=== PATIENT | male | born 1945 | race Caucasian/White ===

== ENCOUNTER 2018-09-21 22:30 | Emergency (ER) | payer MEDICARE, BC ==
[2018-09-21 22:37] VITALS: BP 148/92
[2018-09-21] MEDS: Lidocaine 1% 20 ML MDV ONE (22:59)
[2018-09-21] MEDS: Lidocaine 1% 20 ML MDV INJECT ONE (23:00)
[2018-09-22] MEDS: Bacitracin/Neomycin/Polymyxin B Oint 0.9 GM U/D Packet ONE (00:14)
[2018-09-22] MEDS: Bacitracin/Neomycin/Polymyxin B Oint 0.9 GM U/D Packet TOP ONE (00:14)
[2018-09-22] MEDS: Take Home: Acetaminophen/HYDROcodone 325-5 MG, 2 Tab Pack PO ONE (00:15)
--- NOTE | 2018-09-22 00:17 | EDM.PDOC ---
ED HPI GENERAL MEDICAL PROBLEM - General Chief Complaint: Laceration Stated Complaint: finger laceration Time Seen by Provider: 09/21/18 22:45 Source of Information: Reports: Patient History Limitations: Reports: No Limitations - History of Present Illness INITIAL COMMENTS - FREE TEXT/NARRATIVE: Bolivar is a 73 year old male who presents to the ED with c/o a laceration to his right second digit. Reports he was changing oil and trying to release part of oil diggs when his finger slid and got cut by the metal. He reports incident happened about 4.5 hours prior to ED presentation, but he wasn't sure he needed sutures so did not initially come. He reports as evening progressed he continued to have bleeding despite pressure dressing so decided he better come in. He reports numbness to distal aspect of right second digit. Reports full ROM. Rates pain 9/10. Has not tried anything. Does have significant laceration to distal palmar aspect of right second digit. Bleeding not controlled when pressure dressing removed. Denies any dizziness. No other symptoms. Onset: Today, Sudden Onset Date: 09/21/18 Onset Time: 18:00 Duration: Constant Location: Reports: Upper Extremity, Right Quality: Reports: Throbbing Severity: Severe Improves with: Reports: None Worsens with: Reports: None Associated Symptoms: Reports: No Other Symptoms Right Finger-Index Pain Score (Numeric/FACES): 9 - Related Data Allergies Allergy/AdvReac Type Severity Reaction Status Date / Time atorvastatin calcium Allergy Rash Verified 09/21/18 22:37 [From Lipitor] Horse/Equine Containing Allergy Shortness Verified 09/21/18 22:37 Products of Breath Home Meds: Home Meds Quinapril/Hydrochlorothiazide [Quinapril-Hctz 20-25 mg Tab] 2 tab PO DAILY [History] Simvastatin 10 mg PO BEDTIME 07/17/15 [History] Hydrocodone/Acetaminophen [[place] 5-325 Tablet] 1 tab PO Q6H PRN #10 tablet 09/22 [Rx] Sulfamethoxazole/Trimethoprim [Septra DS] 1 each PO BID 7 Days #14 tab 09/22/18 [Rx] Past Medical History Cardiovascular History: Reports: High Cholesterol, Hypertension Respiratory History: Reports: None Gastrointestinal History: Reports: None Genitourinary History: Reports: None Other Musculoskeletal History: rheumatism Neurological History: Reports: None Psychiatric History: Reports: None Endocrine/Metabolic History: Reports: None Hematologic History: Reports: None Immunologic History: Reports: None Oncologic (Cancer) History: Reports: None Dermatologic History: Reports: None - Infectious Disease History Infectious Disease History: Reports: Measles, Mumps - Past Surgical History HEENT Surgical History: Reports: None Respiratory Surgical History: Reports: None GI Surgical History: Reports: Colonoscopy Male Surgical History: Reports: None Endocrine Surgical History: Reports: None Neurological Surgical History: Reports: None Musculoskeletal Surgical History: Reports: None Other Musculoskeletal Surgeries/Procedures:: L hand crush injury Dermatological Surgical History: Reports: None Social & Family History - Tobacco Use Smoking Status *Q: Never Smoker - Recreational Drug Use Recreational Drug Use: No ED ROS GENERAL - Review of Systems Review Of Systems: ROS reveals no pertinent complaints other than HPI. ED EXAM, SKIN/RASH Exam: See Below Exam Limited By: No Limitations General Appearance: Alert, WD/WN, No Apparent Distress Peripheral Pulses: 2+: Radial (R) Extremities: Normal Range of Motion, Normal Capillary Refill, Other (ROM intact to distal phalynx right second digit) Skin: Wound/Incision (2.5 cm x 2.5 cm T shaped laceration to distal aspect of right second phalynx) Location, Skin: Upper Extremity, Right ED SKIN PROCEDURES - Laceration/Wound Repair Right Distal Digit - 2nd (Index) Lac/Wound length In cm: 5 (2.5 x 2.5 cm T shaped) Appearance: Subcutaneous, Irregular, Clean Distal NVT: Neuro & Vascular Intact Anesthetic Type: Digital Local Anesthesia - Lidocaine (Xylocaine): 1% Plain Local Anesthetic Volume: 5cc Skin Prep: Providone-Iodine (Betadine), Other (Wound cleanser) Exploration/Debridement/Repair: Wound Explored, Minimal Debridement, No Foreign Material Found, Multiple Flaps Aligned Closed with: Sutures Suture Size: other (5-0) # of Sutures: 12 Suture Type: Nylon, Interrupted, Simple Sterile Dressing Applied: Provider Tetanus Status Addressed: Yes Complications: No Progress/Comments: After verbal consent was obtained, laceration was closed without difficulty. Course - Vital Signs Last Recorded V/S: Last Vital Signs Temp 98 F 09/21/18 22:32 Pulse 90 09/21/18 22:32 Resp 18 09/21/18 22:32 BP 148/92 H 09/21/18 22:32 Pulse Ox 96 05/06/19 22:32 - Orders/Labs/Meds Meds: Medications Discontinued Medications Generic Name Dose Route Start Last Admin Trade Name Brandonq PRN Reason Stop Dose Admin Hydrocodone Bitart/Acetaminophen 2 packet 09/22/18 00:05 09/22/18 00:15 Take Home: Acetaminophen/Hydrocod, 2 Tab Pack PO 09/22/18 00:06 2 packet ONETIME ONE Administration Lidocaine HCl Confirm 09/21/18 22:43 09/21/18 22:59 Xylocaine 1% Administered 09/21/18 22:44 Not Given Dose 20 ml .ROUTE .STK-MED ONE Lidocaine HCl 20 ml 09/21/18 22:59 09/21/18 23:00 Xylocaine 1% INJECT 09/21/18 23:00 20 ml ONETIME ONE Administration Neomycin/Polymyxin/Bacitracin Confirm 09/21/18 23:52 09/22/18 00:14 Triple Antibiotic Oint Administered 09/21/18 23:53 Not Given Dose 1 each .ROUTE .STK-MED ONE Neomycin/Polymyxin/Bacitracin 1 each 09/22/18 00:05 09/22/18 00:14 Triple Antibiotic Oint TOP 09/22/18 00:06 1 each ONETIME ONE Administration - Re-Assessments/Exams Free Text/Narrative Re-Assessment/Exam: Discussed with patient that given shape of laceration with multiple wound flaps and time since onset of injury, tissue necrosis to these areas may occur. Patient verbalized understanding. Departure - Departure Time of Disposition: 00:13 Disposition: Home, Self-Care 01 Condition: Good Clinical Impression: Laceration of finger Qualifiers: Encounter type: initial encounter Finger: index finger Damage to nail status: without damage Foreign body presence: without foreign body Laterality: right Qualified Code(s): S61.210A - Laceration without foreign body of right index finger without damage to nail, initial encounter - Discharge Information *PRESCRIPTION DRUG MONITORING PROGRAM REVIEWED*: Not Applicable *COPY OF PRESCRIPTION DRUG MONITORING REPORT IN PATIENT ZACKERY: Not Applicable Prescriptions: Hydrocodone/Acetaminophen [[place] 5-325 Tablet] 1 tab PO Q6H PRN #10 tablet PRN Reason: Pain Sulfamethoxazole/Trimethoprim [Septra DS] 1 each PO BID 7 Days #14 tab Instructions: Stitches, Trina, or Adhesive Wound Closure Referrals: PCP,None [Primary Care Provider] - Forms: ED Department Discharge Additional Instructions: 1) Keep area clean and dry 2) Change dressing daily and apply Triple Antibiotic Ointment 3) Bactrim DS twice daily x 7 days 4) [place] 1-2 tablets every 4-6 hours as needed for severe pain. Both meds can be picked up at pharmacy in the morning. Tylenol or ibuprofen for less severe pain. 5) Follow up Friday for wound recheck
== END 2018-09-22 00:22 | disposition home or self-care (01) ==
LOC: CC.ED 22:30
DX: S61.210A Laceration without foreign body of right index finger without damage to nail, initial encounter (principal); I10 Essential (primary) hypertension; E78.00 Pure hypercholesterolemia, unspecified; Z79.899 Other long term (current) drug therapy; Z88.8 Allergy status to other drugs, medicaments and biological substances; W26.8XXA Contact with other sharp object(s), not elsewhere classified, initial encounter
CPT/HCPCS: 12002; 99282; 99283; A9270; J2001; 12011